=== PATIENT | male | born 1940 | race Caucasian/White ===

== ENCOUNTER 2016-03-15 11:40 | Outpatient (CLI) ==
[2015-03-10 17:22] VITALS: BMI 24.6
[2016-03-15 11:54] LABS: BILIRUBIN,URINE Negative (NEGATIVE); KETONES,URINE Negative (NEGATIVE); LEUKOCYTE ESTERASE ,URINE Negative (NEGATIVE); NITRITE,URINE Negative (NEGATIVE); PROTEIN,URINE 1+ (NEGATIVE); URINE, BLOOD Trace-lysed (NEGATIVE)
[2016-03-15 12:06] LABS: ADD URINE MICROSCOPIC YES
[2016-03-15 12:13] LABS: BACTERIA,URINE TRACE (NOT PRESENT)
== END 2016-03-15 11:41 | disposition home or self-care (01) ==
LOC: NONPT 11:40
PROVIDERS: ATTEND Internal Medicine Nephrology
DX: N39.0 Urinary tract infection, site not specified (principal); I13.10 Hypertensive heart and chronic kidney disease without heart failure, with stage 1 through stage 4 chronic kidney disease, or unspecified chronic kidney disease; N18.9 Chronic kidney disease, unspecified
CPT/HCPCS: 81001; 87086

== ENCOUNTER 2016-04-13 14:31 | Outpatient (CLI) ==
[2015-03-10 17:22] VITALS: BMI 24.6
--- NOTE | 2016-04-13 14:52 | DI ---
Examination: Two radiographic images of the chest. Comparison: 06/03/2015. Reason for study: Cough. FINDINGS: No pneumothorax, pleural effusion, or focal consolidation. The cardiac silhouette is unc hanged. Operative changes are seen after midline sternotomy. The lungs are slightly lucent with li rossy emphysematous change. Impression: No acute cardiopulmonary findings.
== END 2016-04-13 14:32 | disposition home or self-care (01) ==
LOC: RAD 14:31
PROVIDERS: ATTEND General Practice
DX: R05 Cough (principal); R11.0 Nausea

== ENCOUNTER 2016-04-21 13:13 | Outpatient (CLI) ==
[2015-03-10 17:22] VITALS: BMI 24.6
[2016-04-21 13:51] LABS: BILIRUBIN,URINE Negative (NEGATIVE); KETONES,URINE Negative (NEGATIVE); LEUKOCYTE ESTERASE ,URINE Negative (NEGATIVE); NITRITE,URINE Negative (NEGATIVE); PH,URINE 5.5 (5-9); PROTEIN,URINE Trace (NEGATIVE); URINE, BLOOD Negative (NEGATIVE)
[2016-04-21 14:30] LABS: ADD URINE MICROSCOPIC YES
[2016-04-21 14:32] LABS: BACTERIA,URINE 2+ (NOT PRESENT)
== END 2016-04-21 13:14 | disposition home or self-care (01) ==
LOC: NONPT 13:13
PROVIDERS: ATTEND Internal Medicine Nephrology
DX: N18.9 Chronic kidney disease, unspecified (principal); N39.0 Urinary tract infection, site not specified
CPT/HCPCS: 81001; 87086

== ENCOUNTER 2016-06-15 13:32 | Outpatient (CLI) ==
[2015-03-10 17:22] VITALS: BMI 24.6
[2016-06-15 14:27] LABS: HEMATOCRIT 28.3 % (42.0-52.0); HEMOGLOBIN 9.9 g/dl (14.0-18.0); MEAN CORPUSCULAR HEMOGLOBIN 29.4 pg (27.0-31.0); RED BLOOD COUNT 3.37 10^6/ul (4.70-6.10); WHITE BLOOD COUNT 7.8 K/ul (4.2-10.2)
[2016-06-15 14:34] LABS: BILIRUBIN,URINE Negative (NEGATIVE); KETONES,URINE Negative (NEGATIVE); LEUKOCYTE ESTERASE ,URINE Trace (NEGATIVE); NITRITE,URINE Negative (NEGATIVE); PH,URINE 5.5 (5-9); PROTEIN,URINE 2+ (NEGATIVE); URINE, BLOOD 3+ (NEGATIVE)
[2016-06-15 14:35] LABS: ADD URINE MICROSCOPIC YES
[2016-06-15 14:36] LABS: BACTERIA,URINE TRACE (NOT PRESENT)
[2016-06-15 15:39] LABS: ALBUMIN 3.7 g/dL (3.4-5.0); ALBUMIN/GLOBULIN RATIO 1.09; ANION GAP 18.7; BILIRUBIN,TOTAL 0.5 mg/dL (0.00-1.20); BUN/CREATININE RATIO 12.7; CALCIUM 8.8 mg/dL (8.2-10.2); POTASSIUM 5.7 mmol/L (3.5-5.1); TOTAL PROTEIN 7.1 g/dL (5.8-8.1)
[2016-06-15 15:43] LABS: CREATININE 7.24 mg/dL (0.60-1.10)
[2016-06-16 08:31] LABS: URINE CREATININE 94.9 mg/dL (Not Estab.)
[2016-06-16 15:55] LABS: URINE MALB/CR RATIO 213.9 mg/g creat (0.0-30.0)
== END 2016-06-15 13:33 | disposition home or self-care (01) ==
LOC: LAB 13:32
PROVIDERS: ATTEND Nurse Practitioner Family
DX: N18.4 Chronic kidney disease, stage 4 (severe) (principal)
CPT/HCPCS: 36415; 80053; 81001; 82043; 82306; 83970; 84550; 85027

== ENCOUNTER 2016-07-06 16:01 | Outpatient (CLI) ==
[2015-03-10 17:22] VITALS: BMI 24.6
[2016-07-06 16:20] LABS: PROTHROMBIN TIME 24.3 SEC (9.3-11.0)
== END 2016-07-06 16:02 | disposition home or self-care (01) ==
LOC: NONPT 16:01
PROVIDERS: ATTEND Internal Medicine Hematology & Oncology
DX: Z51.81 Encounter for therapeutic drug level monitoring (principal); Z79.01 Long term (current) use of anticoagulants
CPT/HCPCS: 85610

== ENCOUNTER 2016-07-13 12:34 | Outpatient (CLI) ==
[2015-03-10 17:22] VITALS: BMI 24.6
[2016-07-13 13:29] LABS: PROTHROMBIN TIME 11.6 SEC (9.3-11.0)
== END 2016-07-13 12:35 | disposition home or self-care (01) ==
LOC: NONPT 12:34
PROVIDERS: ATTEND Internal Medicine Hematology & Oncology
DX: Z51.81 Encounter for therapeutic drug level monitoring (principal); Z79.01 Long term (current) use of anticoagulants
CPT/HCPCS: 85610

== ENCOUNTER 2016-07-14 15:56 | Emergency (ER) | payer OTHER ==
[2016-07-14 16:05] VITALS: BP 115/56; TEMP 99.9
[2016-07-14] MEDS ORDERED: URO-JET MUCOUSMEMB ONE (16:25)
--- NOTE | 2016-07-14 17:07 | ED.PDOC ---
General ED Provider: Dr. ZACHARY DAVIS Chief Complaint: Non-specific Complaint Stated Complaint: gonzalez cath replacement Time Seen by Physician: 16:00 (home health changed it was unable to place a new cath sent to ED ) Mode of Arrival: Walk-In Information Source: Patient, Family Exam Limitations: No limitations [facility] and Triage Documentation Reviewed and Agree: Yes Complaint Exam - Complaint/Exam Symptoms Are: Still present Current Severity: None Location of Pain: Reports: None Aggravating: Reports: None Alleviating: Reports: None Associated Signs and Symptoms: Denies: Diaphoresis, Back pain, Fever, Hematuria , Dysuria, Constipation, Blood in stool, Rectal pain, Appetite change, Nausea, Vomiting, Penile swelling, Penile discharge, Decreased urine output, Increased urine frequency, Increased thirst, Decreased activity, Lethargy, Scrotal pain, Scrotal swelling, Abdominal Pain Review of Systems - Review Of Systems Constitutional: Reports: No symptoms Eyes: Reports: No symptoms Ears, Nose, Mouth, Throat: Reports: No symptoms Respiratory: Reports: No symptoms Cardiac: Reports: No symptoms GI: Reports: No symptoms : Reports: No symptoms Musculoskeletal: Reports: No symptoms Skin: Reports: No symptoms Neurological: Reports: No symptoms Endocrine: Reports: No symptoms Hematologic/Lymphatic: Reports: No symptoms All Other Systems: Reviewed and Negative Past Medical History - Past Medical History Previously Healthy: No Endocrine: Reports: None Cardiovascular: Reports: Hypertension Respiratory: Reports: COPD Hematological: Reports: None Gastrointestinal: Reports: None Genitourinary: Reports: None Neuro/Psych: Reports: None Musculoskeletal: Reports: None Cancer: Reports: None - Surgical History General Surgical History: Reports: Unknown - Family History Family History: Reports: Unknown - Social History Smoking Status: Former smoker Hx Substance Use: No Alcohol Screening: None Physical Exam - Physical Exam Appearance: Well-appearing, No pain distress, Well-nourished Eyes: ADAIR, EOMI, Conjunctiva clear ENT: Ears normal, Nose normal, Oropharynx normal Respiratory: Airway patent, Breath sounds clear, Breath sounds equal, Respirations nonlabored Cardiovascular: RRR, Pulses normal, No rub, No murmur GI/: Soft, Nontender, No masses, Bowel sounds normal, No Organomegaly Musculoskeletal: Normal strength, ROM intact, No edema, No calf tenderness Skin: Warm, Dry, Normal color Neurological: Sensation intact, Motor intact, Reflexes intact, Cranial nerves intact, Alert, Oriented Psychiatric: Affect appropriate, Mood appropriate Critical Care Note - Critical Care Note Total Time (mins): 0 Course - Course Orders, Labs, Meds: Orders Category Date Time Status Lidocaine HCl [Uro-Jet] MEDS 07/14/16 16:25 Discontinued 10 ml MUCOUSMEMB .STK-MED ONE Vital Signs: Temp Pulse Resp BP Pulse Ox 07/14/16 15:57 99.9 F H 68 20 115/56 L 91 L Departure - Departure Time of Disposition: 17:10 Disposition: HOME SELF-CARE Discharge Problem: Encounter for Gonzalez catheter replacement Instructions: Gonzalez Catheter Placement and Care (ED) Condition: Good Pt referred to PMD for follow-up: No Allergies/Adverse Reactions: Allergies No Known Allergies Allergy (Verified 07/14/16 16:07) Home Medications: Ambulatory Orders Fluticasone Propionate [Flonase] 2 spray ROSA 1-2XD 01/21/15 Magnesium Hydroxide [Milk of Magnesia] 30 ml PO DAILY PRN 01/23/15 Polyethylene Glycol 3350 [Miralax] 17 gm PO DAILY PRN 01/23/15 Spironolactone [Aldactone] 25 mg PO DAILY #30 tablet 01/27/15 Furosemide [Lasix Tab] 20 mg PO QDAC 03/10/15 Metoprolol Succinate 50 mg PO DAILY 09/30/15 Cholecalciferol (Vitamin D3) [Vitamin D3] 1,000 unit PO DAILY 11/19/15 Tamsulosin HCl 0.8 mg PO BEDTIME 11/19/15 Tiotropium Br/Olodaterol HCl [Stiolto Respimat Inhal [place]] 4 gm IH DAILY Warfarin Sodium 2 mg PO EVERY OTHER DAY 11/19/15 Warfarin Sodium 3 mg PO EVERY OTHER DAY 11/19/15 Albuterol Sulfate [Proair Hfa] 8.5 gm IH Q4-6H PRN #1 inch 01/08/16 Atorvastatin Calcium 40 mg PO BEDTIME tab-cap 01/08/16 Furosemide 40 mg PO BID #60 tab-cap 01/08/16 Lisinopril 20 mg PO DAILY #30 tab-cap 04/13/16
== END 2016-07-14 17:26 | disposition home or self-care (01) ==
LOC: ED 15:56
DX: Z46.6 Encounter for fitting and adjustment of urinary device (principal)
CPT/HCPCS: 99282

== ENCOUNTER 2016-07-27 13:13 | Outpatient (CLI) ==
[2016-07-27 13:52] LABS: PROTHROMBIN TIME 13.8 SEC (9.3-11.0)
== END 2016-07-27 13:14 | disposition home or self-care (01) ==
LOC: NONPT 13:13
PROVIDERS: ATTEND Internal Medicine Hematology & Oncology
DX: Z51.81 Encounter for therapeutic drug level monitoring (principal); Z79.01 Long term (current) use of anticoagulants
CPT/HCPCS: 85610

== ENCOUNTER 2016-07-28 16:11 | Outpatient (CLI) ==
[2016-07-28 17:16] LABS: BILIRUBIN,URINE Negative (NEGATIVE); KETONES,URINE Negative (NEGATIVE); LEUKOCYTE ESTERASE ,URINE 3+ (NEGATIVE); NITRITE,URINE Negative (NEGATIVE); PH,URINE 8.5 (5-9); PROTEIN,URINE 3+ (NEGATIVE); URINE, BLOOD 3+ (NEGATIVE)
[2016-07-28 17:21] LABS: ADD URINE MICROSCOPIC YES
[2016-07-28 17:22] LABS: BACTERIA,URINE 3+ (NOT PRESENT)
== END 2016-07-28 16:12 | disposition home or self-care (01) ==
LOC: LAB 16:11
PROVIDERS: ATTEND General Practice
DX: R10.30 Lower abdominal pain, unspecified (principal)
CPT/HCPCS: 81001; 87086

== ENCOUNTER 2016-07-28 22:25 | Emergency (ER) | payer OTHER ==
[2016-07-28 22:41] VITALS: BP 105/52; TEMP 99.6; BMI 20.2
[2016-07-28 23:01] LABS: BILIRUBIN,URINE Negative (NEGATIVE); KETONES,URINE Negative (NEGATIVE); LEUKOCYTE ESTERASE ,URINE 2+ (NEGATIVE); NITRITE,URINE Negative (NEGATIVE); PH,URINE 8.5 (5-9); PROTEIN,URINE 3+ (NEGATIVE); URINE, BLOOD 2+ (NEGATIVE)
[2016-07-28 23:04] LABS: ADD URINE MICROSCOPIC YES
[2016-07-28] MEDS ORDERED: ROCEPHIN 1 GM in SODIUM CHLORIDE 50 ML IV STA (23:45)
[2016-07-28 23:51] LABS: BASOPHILS % (AUTO) 0.3 % (0.0-3.0); EOSINOPHILS # (AUTO) 0.2 K/ul (0.0-0.7); EOSINOPHILS % (AUTO) 1.8 % (0.0-7.0); HEMATOCRIT 31.6 % (42.0-52.0); HEMOGLOBIN 10.4 g/dl (14.0-18.0); IMMATURE GRANULOCYTE % (AUTO) 0.4 % (0.0-5.0); LYMPHOCYTES # (AUTO) 1.2 K/uL (0.60-3.4); LYMPHOCYTES % (AUTO) 11.8 (10.0-50.0); MEAN CORPUSCULAR HEMOGLOBIN 30.4 pg (27.0-31.0); MEAN CORPUSCULAR HGB CONC 32.9 (31.8-35.4); MEAN CORPUSCULAR VOLUME 92.4 fl (80.0-94.0); MONOCYTES # (AUTO) 0.5 K/uL (0.4-2.0); NEUTROPHILS # (AUTO) 8.2 K/ul (2.0-6.9); NEUTROPHILS % (AUTO) 80.7; PLATELET COUNT 112 10^3/uL (140-440); RED BLOOD COUNT 3.42 10^6/ul (4.70-6.10); WHITE BLOOD COUNT 10.12 K/ul (4.2-10.2)
--- NOTE | 2016-07-28 23:56 | CT ---
EXAM: CT abdomen pelvis without intravenous contrast 07/28/2016. Sagittal and coronal reformatted images obtained HISTORY: Flank pain and fever COMPARISON: 01/22/2015 FINDINGS: Right-sided pleural effusion. There is bibasilar consolidation. This likely represents a combination of atelectasis and pneumonia. The liver and gallbladder show no acute abnormality. The adrenal glands and kidneys show no acute p rocess. No hydronephrosis. The spleen and pancreas show no acute abnormality. Aortoiliac stent graft is present. Limited characterization due to lack of intravenous contrast. F oley catheter is present. There is mucosal thickening of the urinary bladder with perivesicular str anding. Correlate for cystitis. Pyelonephritis cannot be excluded due to the lack of intravenous c ontrast. Normal appendix. IMPRESSION: 1. Right pleural effusion. 2. Bibasilar consolidation may represent atelectasis and/or pneumonia. 3. Aortoiliac stent graft is present. This is not well characterized due to the lack of intravenou s contrast. 4. No urinary or bowel obstruction and normal appendix 5. Mucosal thickening of the urinary bladder with perivesicular stranding. The appearance is sugge stive of cystitis. Correlate clinically.
[2016-07-29] MEDS ORDERED: ROCEPHIN ONE (00:10)
[2016-07-29 00:17] LABS: ALBUMIN 3.5 g/dL (3.4-5.0); ANION GAP 16.4; BILIRUBIN,TOTAL 0.95 mg/dL (0.00-1.20); POTASSIUM 3.4 mmol/L (3.5-5.1)
[2016-07-29 00:18] LABS: BUN/CREATININE RATIO 5.23
[2016-07-29 00:23] LABS: CREATININE 3.63 mg/dL (0.60-1.10)
[2016-07-29] MEDS ORDERED: URO-JET MUCOUSMEMB STA (01:44)
--- NOTE | 2016-07-29 01:48 | ED.PDOC ---
General ED Provider: Dr. BRIA PERLA-ER Chief Complaint: Urinary Problem Stated Complaint: i think i might be getting an infection--i want my catheter changed Time Seen by Physician: 22:30 Mode of Arrival: Wheelchair Information Source: Patient, Family Exam Limitations: No limitations [facility] Nursing and Triage Documentation Reviewed and Agree: Yes Complaint Exam - Complaint/Exam Patient Complains of: Reports: Dysuria Onset/Duration: 2 dasy Symptoms Are: Still present Timing: Intermittent Initial Severity: Mild Current Severity: Mild Location of Pain: Reports: Suprapubic Character: Reports: Dull Aggravating: Reports: Voiding Alleviating: Reports: None Associated Signs and Symptoms: Reports: Dysuria. Denies: Diaphoresis, Back pain , Fever, Hematuria, Constipation, Blood in stool, Rectal pain, Appetite change, Nausea, Vomiting, Penile swelling, Penile discharge, Decreased urine output, Increased urine frequency, Increased thirst, Decreased activity, Lethargy, Scrotal pain, Scrotal swelling Related History: Reports: Similar episode Testicular Torsion Risk Factors: Reports: None Abdominal Findings: Present: None Differential Diagnoses: UTI Review of Systems - Review Of Systems Constitutional: Reports: No symptoms Eyes: Reports: No symptoms Ears, Nose, Mouth, Throat: Reports: No symptoms Respiratory: Reports: No symptoms Cardiac: Reports: No symptoms GI: Reports: No symptoms : Reports: Burning, Dysuria Musculoskeletal: Reports: No symptoms Skin: Reports: No symptoms Neurological: Reports: No symptoms Endocrine: Reports: No symptoms Hematologic/Lymphatic: Reports: No symptoms All Other Systems: Reviewed and Negative Past Medical History - Past Medical History Previously Healthy: No Endocrine: Reports: None Cardiovascular: Reports: Hypertension Respiratory: Reports: COPD Hematological: Reports: None Gastrointestinal: Reports: None Genitourinary: Reports: None Neuro/Psych: Reports: None Musculoskeletal: Reports: None Cancer: Reports: None - Surgical History General Surgical History: Reports: Unknown - Family History Family History: Reports: Unknown - Social History Smoking Status: Former smoker Hx Substance Use: No Alcohol Screening: None Physical Exam - Physical Exam Appearance: Well-appearing, No pain distress, Well-nourished Pain Distress: Mild Eyes: ADAIR, EOMI, Conjunctiva clear ENT: Ears normal, Nose normal, Oropharynx normal Neck: Supple Respiratory: Airway patent, Breath sounds clear, Breath sounds equal, Respirations nonlabored Cardiovascular: RRR, Pulses normal, No rub, No murmur GI/: Soft, Nontender, No masses, Bowel sounds normal, No Organomegaly Musculoskeletal: Normal strength, ROM intact, No edema, No calf tenderness Skin: Warm, Dry, Normal color Neurological: Sensation intact, Motor intact, Reflexes intact, Cranial nerves intact, Alert, Oriented Psychiatric: Affect appropriate, Mood appropriate Interpretation - Radiology Interpretation Radiology Interpretation By: Radiologist Radiology Results: Negative Exam Interpreted: CT Scan Re-Evaluation - Re-Evaluation Time of Re-Evaluation: 01:48 ("i feel better") Status: Improved Vital Signs Stable: Yes Pain Level: 0 Appearance: NAD Lungs: Clear Skin: Warm and Dry Neuro: Alert and Oriented X3 CV: RRR Critical Care Note - Critical Care Note Total Time (mins): 0 Course - Course Hematology/Chemistry: 07/28/16 23:40 07/28/16 23:40 Orders, Labs, Meds: Lab Review 07/28/16 07/28/16 22:55 23:40 WBC 10.12 RBC 3.42 L Hgb 10.4 L Hct 31.6 L MCV 92.4 MCH 30.4 MCHC 32.9 RDW Coeff of [place]bert 15.6 H Plt Count 112 L Immature Gran % (Auto) 0.4 Neut % (Auto) 80.7 Lymph % (Auto) 11.8 [place] % (Auto) 5.0 Eos % (Auto) 1.8 Baso % (Auto) 0.3 Immature Gran # (Auto) 0.0 Neut # 8.2 H Lymph # 1.2 [place] # 0.5 Eos # 0.2 Baso # 0.0 Sodium 132 L Potassium 3.4 L Chloride 91 L Carbon Dioxide 28 Anion Gap 16.4 BUN 19 H Creatinine 3.63 H* Estimated GFR (MDRD) 17.00 BUN/Creatinine Ratio 5.23 Glucose 113 Lactic Acid 11.2 Calcium 9.0 Total Bilirubin 0.95 AST 18 ALT 7 L Alkaline Phosphatase 78 Total Protein 7.0 Albumin 3.5 Globulin 3.5 Albumin/Globulin Ratio 1.00 Procalcitonin 5.14 Urine Color Yellow Urine Clarity Cloudy Urine pH 8.5 Ur Specific [place] 1.015 Urine Protein 3+ Urine Glucose (UA) Negative Urine Ketones Negative Urine Blood 2+ Urine Nitrite Negative Urine Bilirubin Negative Urine Urobilinogen 1.0 Ur Leukocyte Esterase 2+ Urine Microscopic WBC Tntc Ur Squamous Epith Cells Not present Orders Category Date Time Status Bladder [ED BLADDER SCAN] .ONCE EMERGENCY 07/28/16 22:55 Active ED IV/MEDIPORT/POWERPORT .ONCE EMERGENCY 07/28/16 23:45 Active Gonzalez [ED CATHETER INSERTION AND CARE] .ONCE EMERGENCY 07/29/16 01:44 Active BLOOD CULTURE Stat LAB 07/28/16 23:40 Received CBC W/ AUTO DIFF Stat LAB 07/28/16 23:40 Completed COMPREHENSIVE METABOLIC PANEL Stat LAB 07/28/16 23:40 Completed LACTIC ACID Stat LAB 07/28/16 23:40 Completed PROCALCITONIN Stat LAB 07/28/16 23:40 Completed URINALYSIS C & S IF INDICATED Stat LAB 07/28/16 22:55 Completed URINE CULTURE Stat LAB 07/28/16 23:00 Received 0.9 % Sodium Chloride [Saline Flush] MEDS 07/28/16 23:45 Ordered 1 syr IVF PRN PRN Ceftriaxone Sodium [Rocephin] MEDS 07/29/16 00:10 Discontinued 1 gm .ROUTE .STK-MED ONE Ceftriaxone Sodium [Rocephin] 1 gm MEDS 07/28/16 23:45 Discontinued 0.9 % Sodium Chloride [Sodium Chloride] 50 ml IV ONCE Lidocaine HCl [Uro-Jet] MEDS 07/29/16 01:44 Discontinued 10 ml [email or web address] ONCE STA CT ABDOMEN/PELVIS WO CONTRAST Stat RADS 07/28/16 23:20 Completed Medications Generic Name Dose Route Start Last Admin Trade Name Freq PRN Reason Stop Dose Admin Sodium Chloride 1 syr 07/28/16 23:45 07/29/16 00:17 Saline Flush IVF 1 syr PRN PRN Administration To flush IV Discontinued Medications Generic Name Dose Route Start Last Admin Trade Name Freq PRN Reason Stop Dose Admin Ceftriaxone Sodium 1 gm/ 50 mls @ 75 mls/hr 07/28/16 23:45 07/29/16 00:17 Sodium Chloride IV 07/29/16 00:24 75 mls/hr ONCE STA Administration Lidocaine HCl 10 ml 07/29/16 01:44 Uro-Jet MUCOUSMEMB 07/29/16 01:45 ONCE STA Vital Signs: Temp Pulse Resp BP Pulse Ox 07/28/16 22:29 99.6 F 74 20 105/52 L 92 L Departure - Departure Time of Disposition: 01:48 Disposition: HOME SELF-CARE Discharge Problem: Urinary tract infectious disease Instructions: Urinary Tract Infection in Men (ED) Condition: Good Pt referred to PMD for follow-up: Yes Additional Instructions: augmentin 875mg bid x 7days--f/u with pcp next weeek Allergies/Adverse Reactions: Allergies No Known Allergies Allergy (Verified 07/28/16 23:04) Home Medications: Ambulatory Orders Fluticasone Propionate [Flonase] 2 spray ROSA 1-2XD 01/21/15 Magnesium Hydroxide [Milk of Magnesia] 30 ml PO DAILY PRN 01/23/15 Polyethylene Glycol 3350 [Miralax] 17 gm PO DAILY PRN 01/23/15 Cholecalciferol (Vitamin D3) [Vitamin D3] 1,000 unit PO DAILY 11/19/15 Tamsulosin HCl 0.8 mg PO BEDTIME 11/19/15 Tiotropium Br/Olodaterol HCl [Stiolto Respimat Inhal [place]] 4 gm IH DAILY Warfarin Sodium 2 mg PO EVERY OTHER DAY 11/19/15 Warfarin Sodium 3 mg PO EVERY OTHER DAY 11/19/15 Albuterol Sulfate [Proair Hfa] 8.5 gm IH Q4-6H PRN #1 inch 01/08/16 Atorvastatin Calcium 40 mg PO BEDTIME tab-cap 01/08/16 Lisinopril 20 mg PO DAILY #30 tab-cap 04/13/16 Hydrocodone/Acetaminophen [Hydrocodon-Acetaminophen 5-325] 1 each PO PRN #1 tab- cap 07/28/16 Disposition Discussed With: Patient, Family
== END 2016-07-29 02:00 | disposition home or self-care (01) ==
LOC: ED 22:25
DX: N39.0 Urinary tract infection, site not specified (principal); Z79.01 Long term (current) use of anticoagulants; Z79.899 Other long term (current) drug therapy; Z96.0 Presence of urogenital implants; R10.30 Lower abdominal pain, unspecified
CPT/HCPCS: 36415; 80053; 81001; 83605; 84145; 85025; 87040; 87086; 87186; 96365; 99284

== ENCOUNTER 2016-08-03 12:19 | Outpatient (CLI) | payer OTHER ==
[2016-08-03 12:52] LABS: PROTHROMBIN TIME 20.1 SEC (9.3-11.0)
== END 2016-08-03 12:20 | disposition home or self-care (01) ==
LOC: NONPT 12:19
PROVIDERS: ATTEND Internal Medicine Hematology & Oncology
DX: Z51.81 Encounter for therapeutic drug level monitoring (principal); Z79.01 Long term (current) use of anticoagulants
CPT/HCPCS: 85610

== ENCOUNTER 2016-08-17 19:19 | Emergency (ER) | payer OTHER ==
[2016-08-17 19:28] LABS: BASOPHILS # (AUTO) 0.1 K/uL (0-0.2); BASOPHILS % (AUTO) 0.6 % (0.0-3.0); EOSINOPHILS # (AUTO) 0.6 K/ul (0.0-0.7); EOSINOPHILS % (AUTO) 5.9 % (0.0-7.0); HEMATOCRIT 37.3 % (42.0-52.0); HEMOGLOBIN 12.1 g/dl (14.0-18.0); IMMATURE GRANULOCYTE % (AUTO) 0.3 % (0.0-5.0); LYMPHOCYTES # (AUTO) 1.2 K/uL (0.60-3.4); LYMPHOCYTES % (AUTO) 12.1 (10.0-50.0); MEAN CORPUSCULAR HEMOGLOBIN 30.3 pg (27.0-31.0); MEAN CORPUSCULAR HGB CONC 32.4 (31.8-35.4); MEAN CORPUSCULAR VOLUME 93.3 fl (80.0-94.0); MONOCYTES # (AUTO) 0.6 K/uL (0.4-2.0); MONOCYTES % (AUTO) 5.8 (0-10); NEUTROPHILS # (AUTO) 7.3 K/ul (2.0-6.9); NEUTROPHILS % (AUTO) 75.3; PLATELET COUNT 109 10^3/uL (140-440); WHITE BLOOD COUNT 9.73 K/ul (4.2-10.2)
--- NOTE | 2016-08-17 19:28 | ED.PDOC ---
General ED Provider: Dr. BRIA PERLA-ER Chief Complaint: Non-specific Complaint Stated Complaint: i had dialysis today--debra been bleeding for about an hour Time Seen by Physician: 19:27 Mode of Arrival: Walk-In Information Source: Patient, Family [facility] and Triage Documentation Reviewed and Agree: Yes Review of Systems - Review Of Systems Constitutional: Reports: No symptoms Eyes: Reports: No symptoms Ears, Nose, Mouth, Throat: Reports: No symptoms Respiratory: Reports: No symptoms Cardiac: Reports: No symptoms GI: Reports: No symptoms : Reports: No symptoms Musculoskeletal: Reports: No symptoms Skin: Reports: No symptoms Neurological: Reports: No symptoms Endocrine: Reports: No symptoms Hematologic/Lymphatic: Reports: No symptoms All Other Systems: Reviewed and Negative Past Medical History - Past Medical History Previously Healthy: No Endocrine: Reports: None Cardiovascular: Reports: Hypertension, A-Fib Respiratory: Reports: COPD Hematological: Reports: None Gastrointestinal: Reports: None Genitourinary: Reports: None, CKD Neuro/Psych: Reports: None Musculoskeletal: Reports: None Cancer: Reports: None - Surgical History General Surgical History: Reports: Unknown - Family History Family History: Reports: Unknown - Social History Smoking Status: Former smoker Hx Substance Use: No Alcohol Screening: None Lives: With family Physical Exam - Physical Exam Appearance: Well-appearing, No pain distress, Well-nourished Eyes: ADAIR, EOMI, Conjunctiva clear ENT: Ears normal, Nose normal, Oropharynx normal Neck: Supple Respiratory: Airway patent, Breath sounds clear, Breath sounds equal, Respirations nonlabored Cardiovascular: RRR GI/: Soft, Nontender, No masses, Bowel sounds normal, No Organomegaly Musculoskeletal: Normal strength, ROM intact, No edema, No calf tenderness Skin: Warm, Dry, Normal color Neurological: Sensation intact, Motor intact, Reflexes intact, Cranial nerves intact, Alert, Oriented Psychiatric: Affect appropriate, Mood appropriate, Anxious Physician Notification - Case Discussed Physician Notified: dr pardo Time of Notification: 20:36 Critical Care Note - Critical Care Note Total Time (mins): 0 Course - Course Hematology/Chemistry: 08/17/16 19:15 08/17/16 19:15 Orders, Labs, Meds: Lab Review 08/17/16 19:15 WBC 9.73 RBC 4.00 L Hgb 12.1 L Hct 37.3 L MCV 93.3 MCH 30.3 MCHC 32.4 RDW Coeff of [place] 15.6 H Plt Count 109 L Immature Gran % (Auto) 0.3 Neut % (Auto) 75.3 Lymph % (Auto) 12.1 [place] % (Auto) 5.8 Eos % (Auto) 5.9 Baso % (Auto) 0.6 Immature Gran # (Auto) 0.0 Neut # 7.3 H Lymph # 1.2 [place] # 0.6 Eos # 0.6 Baso # 0.1 PT 23.6 H INR 2.29 Sodium 144 Potassium 3.4 L Chloride 94 L Carbon Dioxide 36 H Anion Gap 17.4 BUN 7 Creatinine 2.05 H Estimated GFR (MDRD) 32.00 BUN/Creatinine Ratio 3.41 Glucose 115 Calcium 9.1 Total Bilirubin 0.84 AST 17 ALT 10 L Alkaline Phosphatase 86 Total Protein 6.9 Albumin 3.8 Globulin 3.1 Albumin/Globulin Ratio 1.23 Orders Category Date Time Status ED IV/MEDIPORT/POWERPORT .ONCE EMERGENCY 08/17/16 19:29 Active CBC W/ AUTO DIFF Stat LAB 08/17/16 19:15 Completed COMPREHENSIVE METABOLIC PANEL Stat LAB 08/17/16 19:15 Completed PT WITH INR Stat LAB 08/17/16 19:15 Completed 0.9 % Sodium Chloride [Saline Flush] MEDS 08/17/16 19:29 Ordered 1 syr IVF PRN PRN Medications Generic Name Dose Route Start Last Admin Trade Name Freq PRN Reason Stop Dose Admin Sodium Chloride 1 syr 08/17/16 19:29 Saline Flush IVF PRN PRN To flush IV Vital Signs: Temp Pulse Resp BP Pulse Ox 08/17/16 19:21 99.6 F 77 20 127/69 94 L Departure - Departure Time of Disposition: 20:36 Disposition: TSF SHORT-TRM HOSP Discharge Problem: Hemorrhage Instructions: Postoperative Bleeding (ED) Condition: Fair Pt referred to PMD for follow-up: Yes Allergies/Adverse Reactions: Allergies adhesive tape Adverse Reaction (Verified 08/17/16 19:39) can use paper tape Home Medications: Ambulatory Orders Fluticasone Propionate [Flonase] 2 spray ROSA 1-2XD 01/21/15 Magnesium Hydroxide [Milk of Magnesia] 30 ml PO DAILY PRN 01/23/15 Polyethylene Glycol 3350 [Miralax] 17 gm PO DAILY PRN 01/23/15 Cholecalciferol (Vitamin D3) [Vitamin D3] 1,000 unit PO DAILY 11/19/15 Tamsulosin HCl 0.8 mg PO BEDTIME 11/19/15 Tiotropium Br/Olodaterol HCl [Stiolto Respimat Inhal [place]] 4 gm IH DAILY Warfarin Sodium 2 mg PO DIRECTED 11/19/15 Warfarin Sodium 3 mg PO DIRECTED 11/19/15 Albuterol Sulfate [Proair Hfa] 8.5 gm IH Q4-6H PRN #1 inch 01/08/16 Atorvastatin Calcium 40 mg PO BEDTIME tab-cap 01/08/16 Lisinopril 20 mg PO DAILY #30 tab-cap 04/13/16 Transfer Form Completed: Yes Disposition Discussed With: Patient, Family
[2016-08-17 19:32] VITALS: BP 127/69; TEMP 99.6
[2016-08-17 19:54] LABS: ALBUMIN 3.8 g/dL (3.4-5.0); ALBUMIN/GLOBULIN RATIO 1.23; ANION GAP 17.4; BILIRUBIN,TOTAL 0.84 mg/dL (0.00-1.20); BUN/CREATININE RATIO 3.41; CALCIUM 9.1 mg/dL (8.2-10.2); CREATININE 2.05 mg/dL (0.60-1.10); POTASSIUM 3.4 mmol/L (3.5-5.1); TOTAL PROTEIN 6.9 g/dL (5.8-8.1)
[2016-08-17 20:11] LABS: PROTHROMBIN TIME 23.6 SEC (9.3-11.0)
[2016-08-17] MEDS ORDERED: VITAMIN K ONE (20:38)
[2016-08-17] MEDS ORDERED: VITAMIN K IV STA ×4 (20:45)
[2016-08-17] MEDS ORDERED: SODIUM CHLORIDE IV STA ×4 (20:45)
== END 2016-08-17 21:02 | disposition short-term general hospital (02) ==
LOC: ED 19:19
DX: T82.838A Hemorrhage due to vascular prosthetic devices, implants and grafts, initial encounter (principal); I12.9 Hypertensive chronic kidney disease with stage 1 through stage 4 chronic kidney disease, or unspecified chronic kidney disease; N18.9 Chronic kidney disease, unspecified; D63.1 Anemia in chronic kidney disease; Z99.2 Dependence on renal dialysis; Z79.01 Long term (current) use of anticoagulants; Z79.899 Other long term (current) drug therapy
CPT/HCPCS: 36415; 80053; 85025; 85610; 96374; 99283

== ENCOUNTER 2016-08-17 21:00 | Outpatient (CLI) | END 2016-08-17 21:01 | disposition home or self-care (01) | LOC: AMBL 21:00 | PROVIDERS: ATTEND Family Medicine | DX: T82.838A Hemorrhage due to vascular prosthetic devices, implants and grafts, initial encounter (principal); N18.9 Chronic kidney disease, unspecified; Z99.2 Dependence on renal dialysis; Z79.01 Long term (current) use of anticoagulants ==

== ENCOUNTER 2016-08-24 16:22 | Outpatient (CLI) ==
[2016-08-24 16:44] LABS: PROTHROMBIN TIME 17.1 SEC (9.3-11.0)
== END 2016-08-24 16:23 | disposition home or self-care (01) ==
LOC: NONPT 16:22
PROVIDERS: ATTEND Internal Medicine Hematology & Oncology
DX: Z51.81 Encounter for therapeutic drug level monitoring (principal); Z79.01 Long term (current) use of anticoagulants
CPT/HCPCS: 85610

== ENCOUNTER 2016-08-31 13:10 | Outpatient (CLI) ==
[2016-08-31 13:47] LABS: PROTHROMBIN TIME 21.7 SEC (9.3-11.0)
== END 2016-08-31 13:11 | disposition home or self-care (01) ==
LOC: NONPT 13:10
PROVIDERS: ATTEND Internal Medicine Hematology & Oncology
DX: Z51.81 Encounter for therapeutic drug level monitoring (principal); Z79.01 Long term (current) use of anticoagulants
CPT/HCPCS: 85610

== ENCOUNTER 2016-09-01 15:36 | Outpatient (CLI) ==
--- NOTE | 2016-09-01 16:01 | DI ---
EXAM: PA and lateral views of the chest HISTORY: Abnormal breath sounds COMPARISON: Chest x-ray 04/13/2016 and multiple priors including CT chest 03/10/2015 FINDINGS: The cardiomediastinal silhouette is unchanged with intact sternotomy wires. There is a n ew right central catheter with the tip in the proximal right atrium. There is minimal abnormal appe arance of the distal tip of the dual-lumen catheter that may represent a small fracture. There is n o pneumothorax. There is a small right pleural effusion. There is no acute consolidation or mass. Lungs are hyperinflated. The osseous structures are unremarkable. IMPRESSION: 1. New central line with tip in the region of the proximal right atrium and questionable distal fra cture of the tubing as described above. 2. Small right pleural effusion and hyperinflation suggestive of chronic obstructive pulmonary dise ase.
== END 2016-09-01 15:37 | disposition home or self-care (01) ==
LOC: RAD 15:36
PROVIDERS: ATTEND General Practice
DX: R06.89 Other abnormalities of breathing (principal)

== ENCOUNTER 2016-09-07 12:35 | Outpatient (CLI) ==
[2016-09-07 13:29] LABS: PROTHROMBIN TIME 20.1 SEC (9.3-11.0)
== END 2016-09-07 12:36 | disposition home or self-care (01) ==
LOC: NONPT 12:35
PROVIDERS: ATTEND Internal Medicine Hematology & Oncology
DX: Z51.81 Encounter for therapeutic drug level monitoring (principal); Z79.01 Long term (current) use of anticoagulants
CPT/HCPCS: 85610